=== PATIENT | female | born 1940 | race Caucasian/White ===

== ENCOUNTER 2016-09-01 13:49 | Emergency (ER) | payer OTHER ==
[2016-09-01 13:54] VITALS: RESP 16; TEMP 98.8
--- NOTE | 2016-09-01 14:47 | EDPHY ---
H & P Stated Complaint: Redness and swelling to R forearm x 1 day after cat bite/ scratch. HPI/ROS: HPI CHIEF COMPLAINT: Cat bite HISTORY OF PRESENT ILLNESS: This patient very pleasant 76-year-old female no significant medical history does not take any daily medications, she presents emergency room after cat bit her yesterday in her right forearm. Her CT is up- to-date on shots. She has some mild swelling and redness. She is concerned about cat bite infection. As she had 1 a few years ago he got really bad. She came in immediately or less than 24 hours Past Medical History: No significant medical history Past Surgical History: No significant surgical history Social History: Denies daily use drugs alcohol tobacco products Family History: Noncontributory ROS REVIEW OF SYSTEMS: A comprehensive 10 point review of systems is otherwise negative aside from elements mentioned in the history of present illness. Exam Constitutional triage nursing summary reviewed, vital signs reviewed, awake/ alert. Eyes normal conjunctivae and sclera, EOMI, PERRLA. HENT normal inspection, atraumatic, moist mucus membranes, no epistaxis, neck supple/ no meningismus, no raccoon eyes. Respiratory clear to auscultation bilaterally, normal breath sounds, no respiratory distress, no wheezing. Cardiovascular rate normal, regular rhythm, no murmur, no edema, distal pulses normal. Gastrointestinal soft, non-tender, no rebound, no guarding, normal bowel sounds, no distension, no pulsatile mass. Genitourinary no CVA tenderness. Musculoskeletal no midline vertebral tenderness, full range of motion, no calf swelling, no tenderness of extremities, no meningismus, good pulses, neurovascularly intact. Skin right forearm distal aspect mild erythema and mild swelling, no induration no abscess, no foreign bodies palpated. Small puncture site abrasion. Neurologic awake, alert and oriented x 3, AAOx3, moves all 4 extremities equally, motor intact, sensory intact, CN II-XII intact, normal cerebellar, normal vision, normal speech. Psychiatric normal mood/affect. Heme/Lymph/Immune no lymphadenopathy. Differential Diagnosis: Includes but is not limited to in a particular order, cat bite, cat bite infection, cellulitis Medical Decision Making: Plan for this patient started on Augmentin, warm compresses, return emergency room immediately if he gets worsening swelling, redness, fever or any questions or concerns or worsening pain she understands. Source: Patient - Personal History Current Tetanus Diphtheria and Acellular Pertussis (TDAP): Yes Tetanus Vaccine Date: 2013 - Medical/Surgical History Hx Asthma: No Hx Chronic Respiratory Disease: No Hx Diabetes: No Hx Cardiac Disease: No Hx Renal Disease: No Hx Cirrhosis: No Hx Alcoholism: No Hx HIV/AIDS: No Hx Splenectomy or Spleen Trauma: No Other PMH: HYSTERECTOMY - Social History Smoking Status: Never smoked Constitutional: Initial Vital Signs Temperature (C) 37.1 C 09/01/16 13:51 Heart Rate 97 09/01/16 13:51 Respiratory Rate 16 09/01/16 13:51 Blood Pressure 153/99 H 09/01/16 13:51 O2 Sat (%) 97 09/01/16 13:51 O2 Delivery Mode Room Air Allergies/Adverse Reactions: No Known Allergies Allergy (Verified 09/01/16 13:54) Home Medications: Medication Instructions Recorded Aspirin 07/11/13 Amoxicillin/Clavulanate Pot 875 mg PO BID #14 tab 09/01/16 [Augmentin 875 MG TAB (*)] CULTURELLE 09/01/16 Cranberry Fruit Extract/Vit C 09/01/16 Departure - Departure Disposition: Home, Routine, Self-Care Clinical Impression: Cat bite Qualifiers: Encounter type: initial encounter Qualified Code(s): W55.01XA - Bitten by cat, initial encounter Condition: Good Instructions: Animal Bite (ED) Additional Instructions: 1. Watch the area closely for further infection this includes worsening redness , swelling, pain. 2. Please take her Augmentin as prescribed. Take it with yogurt and fruit. Not on an empty stomach. It can cause diarrhea. Referrals: NONE *PRIMARY CARE P,. [Primary Care Provider] - As per Instructions Prescriptions: Amoxicillin/Clavulanate Pot [Augmentin 875 MG TAB (*)] 875 mg PO BID #14 tab
[2016-09-01 15:10] VITALS: BP 134/100; PULSE 88; O2SAT 98
== END 2016-09-01 14:57 | disposition home or self-care (01) ==
LOC: CED 13:49
PROC: 2W3CX3Z Immobilization of Right Lower Arm using Brace (ICD-10-PCS; principal; 2016-09-01)
DX: S51.851A Open bite of right forearm, initial encounter (principal); Z79.82 Long term (current) use of aspirin; W55.01XA Bitten by cat, initial encounter
CPT/HCPCS: 99283; L3925